=== PATIENT | female | born 1995 | race African-American/Black ===

== ENCOUNTER 2017-11-13 22:07 | Emergency (ER) | payer SELFPAY ==
[~2017-11-13] VITALS: Ht 177.8 cm; Wt 70.0 kg
[2017-11-13 22:19] VITALS: BP 133/64; PULSE 72; RESP 16; TEMP 98.5; O2SAT 100
--- NOTE | 2017-11-14 00:13 | PD ---
HPI Chief Complaint: Complaint Time Seen by Provider: 00:07 Travel History International Travel<30 days: No Contact w/Intl Traveler<30days: No Traveled to known affect area: No History of Present Illness HPI 22-year-old female complains of low abdominal discomfort and urinary frequency. Patient states that the symptoms started a week ago. Patient states that she is late for her menstruation period this month. Patient denies any headache. Patient denies any chest pain or shortness of breath. Patient denies any nausea vomiting diarrhea. Patient denies any dysuria. Patient denies any vaginal discharge or bleeding. [facility] Past Medical History Immunizations Current: Yes Tetanus Vaccination: Unknown Influenza Vaccination: No ?: Unknown LMP: 10/10/17 Social History Alcohol Use: Yes (occ) Tobacco Use: No Substance Use: No Allergies-Medications (Allergen,Severity, Reaction): Coded Allergies: No Known Allergies (Unverified , 11/13/17) Review of Systems General / Constitutional: No: Fever Eyes: No: Visual changes HENT: No: Headaches Cardiovascular: No: Chest Pain or Discomfort Respiratory: No: Shortness of Breath Gastrointestinal: Positive: Abdominal Pain Genitourinary: Positive: Frequency, No: Dysuria Musculoskeletal: No: Pain Skin: No Rash Neurologic: No: Weakness Psychiatric: No: Depression Endocrine: No: Polydipsia Hematologic/Lymphatic: No: Easy Bruising Physical Exam Narrative GENERAL: Well-nourished, well-developed patient. SKIN: Focused skin assessment warm/dry. HEAD: Normocephalic. EYES: No scleral icterus. No injection or drainage. NECK: Supple, trachea midline. No JVD or lymphadenopathy. CARDIOVASCULAR: Regular rate and rhythm without murmurs, gallops, or rubs. RESPIRATORY: Breath sounds equal bilaterally. No accessory muscle use. GASTROINTESTINAL: Abdomen soft, non-tender, nondistended. MUSCULOSKELETAL: No cyanosis, or edema. BACK: Nontender without obvious deformity. No CVA tenderness. Data Data Last Documented VS Vital Signs Date Time Temp Pulse Resp B/P (MAP) Pulse Ox O2 Delivery O2 Flow Rate FiO2 11/13/17 22:19 98.5 72 16 133/64 (87) 100 Orders Orders Urinalysis - C+S If Indicated (11/14/17 00:07) Ed Urine Pregnancytest Poc (11/14/17 00:11) [facility] Medical Decision Making Medical Screen Exam Complete: Yes Emergency Medical Condition: Yes Interpretation(s) Urine test negative. Differential Diagnosis Differential diagnosis including UTI, bladder spasm, . Narrative Course 22-year-old female with lower abdominal discomfort and urinary frequency. Diagnosis Primary Impression: UTI (urinary tract infection) Qualified Codes: N30.00 - Acute cystitis without hematuria Patient Instructions: General Instructions Additional Instructions: Bactrim DS as directed. Follow-up with personal physician. Return if worse. Med/Other Pt SpecificInfo: Prescription(s) given Scripts Sulfamethoxazole-Trimethoprim (Bactrim DS) 800-160 Mg Tab 1 TAB PO BID for Infection, #14 TAB 0 Refills Prov: Alexandr Fields MD 11/14/17 Disposition: 01 DISCHARGE HOME Condition: Stable Alexandr Fields MD Nov 14, 2017 00:13
[2017-11-14] MEDS ORDERED: BACT800T5 PO (00:55)
[2017-11-14] MEDS ORDERED: SULFAMETHOXAZOLE-TRIMETHOPRIM DS 800-160 MG TAB PO ONE (01:00)
[2017-11-14 01:39] LABS: AMORPHOUS SEDIMENT, URINE RARE; BILIRUBIN, URINE NEG (NEG); BLOOD, URINE NEG (NEG); GLUCOSE,URINE NEG (NEG); KETONE, URINE NEG (NEG); MUCUS URINE FEW /lpf (OCC); NITRITE,URINE NEG (NEG); PH, URINE 7.5 (5.0-8.5); SQUAMOUS EPITHELIAL CELL URINE 22 /hpf (0-5); URINE COLOR YELLOW (YELLW/STRAW); URINE LEUKOCYTE ESTERASE TRACE (NEG)
== END 2017-11-14 03:12 | disposition home or self-care (01) ==
LOC: NEPD 22:07
DX: N30.00 Acute cystitis without hematuria (principal)
CPT/HCPCS: 81001; 84703; 99283

== ENCOUNTER 2018-01-09 12:51 | Emergency (ER) | payer OTHER ==
[~2018-01-09 12:51] MED LIST: BACT800T5 PO
[2018-01-09 13:22] VITALS: BP 141/72; PULSE 83; RESP 12; TEMP 98.3; O2SAT 100
== END 2018-01-09 15:33 | disposition left against medical advice (07) ==
LOC: NED 12:51
DX: R39.9 Unspecified symptoms and signs involving the genitourinary system (principal)
CPT/HCPCS: 99281